=== PATIENT | male | born 1965 | race Caucasian/White ===

== ENCOUNTER 2018-09-18 11:14 | Emergency (ER) | payer OTHER ==
[~2018-09-18] VITALS: Ht 182.9 cm; Wt 115.7 kg
[~2018-09-18 11:14] MED LIST: CEFPODOXIME PR200 M1 PO; FLOMAX0.4 MG PO; MIRALAX17 GM PO; NORCO 5-325 TA1 EACH PO
[2018-09-18 12:06] LABS: HEMATOCRIT 49.3 % (42.0-52.0); HEMOGLOBIN 16.8 gm/dL (14.0-18.0); MCH 30.6 pg (26.0-34.0); MCHC 34.1 g/dL (28.0-37.0); MCV 89.5 fL (80.0-100.0); MPV 7.7 fl. (7.2-11.1); NUCLEATED RBCS 0 /100WBC; PLATELET COUNT* 259 thou/uL (150-400); RBC 5.51 mil/uL (4.50-6.00); RDW-CV 13.7 % (10.5-14.5)
[2018-09-18 12:07] LABS: URINE BILIRUBIN NEGATIVE (Negative); URINE BLOOD 2+ (Negative); URINE CLARITY CLEAR; URINE COLOR YELLOW; URINE GLUCOSE-RANDOM NEGATIVE (Negative); URINE KETONES TRACE (Negative); URINE LEUKOCYTES-REFLEX 1+ (Negative); URINE PROTEIN NEGATIVE (Negative); URINE UROBILINOGEN 0.2 E.U./dl (0.2-1.0)
[2018-09-18 12:08] LABS: URINE NITRITE-REFLEX POSITIVE (Negative)
[2018-09-18 12:14] LABS: CREATININE 0.9 mg/dL (0.6-1.3); POTASSIUM 4.1 mmol/L (3.5-5.1)
[2018-09-18 12:17] LABS: BACTERIA-REFLEX >30 Many /HPF (None Seen); CASTS None Seen /LPF (None Seen); CRYSTALS None Seen /LPF (None Seen); MUCUS 0-3 Light strn/LPF (None Seen); SQUAMOUS 0-3 Few /LPF (0-3); URINE RBC 3-10 Few /HPF (0-2); URINE WBC-REFLEX 0-5 Rare /HPF (0-5)
[2018-09-18 12:18] LABS: ALBUMIN 3.9 g/dL (3.4-5.0); TOTAL BILIRUBIN 1.2 mg/dL (<0.1-1.0); TOTAL PROTEIN 8.1 g/dL (6.4-8.2)
[2018-09-18 12:28] LABS: ABSOLUTE EOSINOPHILS 0.1 thou/uL (0.0-0.7); ABSOLUTE MONOCYTES 0.4 thou/uL (0.0-1.2); ABSOLUTE NEUTROPHILS 12.5 thou/uL (1.6-8.1); ANISOCYTOSIS 1+; PLATELET ESTIMATE ADEQUATE; POIKILOCYTOSIS 1+
[2018-09-18] MEDS ORDERED: MACROBID 100 M100 M1 PO (13:11)
[2018-09-18 13:40] VITALS: BP 126/93
== END 2018-09-18 13:40 | disposition home or self-care (01) ==
LOC: M.ERS 11:14
PROVIDERS: Physician Assistant
DX: N39.0 Urinary tract infection, site not specified (principal); Z87.891 Personal history of nicotine dependence